=== PATIENT | male | born 1995 | race Asian ===

== ENCOUNTER 2022-02-12 16:12 | Emergency (ER) | payer BC, SELFPAY ==
--- NOTE | ~2022-02-12 | CT_ITS ---
EXAMINATION: CT brain wo con DATE: 02/12/2022 16:52 INDICATION: headache . TECHNIQUE: Computed tomography (CT) of the head was performed without intravenous contrast. The mA wa s adjusted according to patient size. Iterative reconstruction technique was employed. The dose-lengt h product was 605.33 mGy-cm. COMPARISON: None FINDINGS: No acute intracranial hemorrhage or extra-axial fluid collection. No hydrocephalus, mass, or herniation. No acute ischemic infarct. Unremarkable dural venous sinus attenuation. No acute osseous abnormality. The aerated spaces are clear. IMPRESSION: No acute intracranial process. Reviewed, dictated and finalized at location [facility]. [facility]
[2022-02-12 16:24] VITALS: BP 142/100; PULSE 105; RESP 18; TEMP 37.1; O2SAT 97
[2022-02-12 16:42] LABS: Basophils Absolute Auto 0.1 K/mm3 (0.0-0.1); Basophils Percent Auto 0.4 % (0.2-1.2); Hemoglobin 15.9 g/dL (14.0-18.0); Immature Granulocyte Absolute 0.04 K/mm3 (0.00-0.031); Immature Granulocyte Percent A 0.3 % (0-0.5); Lymphocytes Absolute Auto 1.45 K/mm3 (0.9-3.2); Lymphocytes Percent Auto 12.3 % (18.3-44.2); Mean Corpuscular HGB Conc 34.6 g/dl (32-36); Mean Corpuscular Hemoglobin 31.1 pg (26-34); Mean Corpuscular Volume 89.8 fl (80-100); Monocytes Absolute Auto 0.5 K/mm3 (0.1-0.6); Neutrophils Absolute Auto 9.8 K/mm3 (1.3-6.7); Platelet Count Result 266 k/mm3 (150-375); Red Blood Count 5.12 M/mm3 (4.6-6.20); Red Cell Distribution Width 11.9 % (11.5-14.5); White Blood Count 11.8 K/mm3 (4.5-10.0)
[2022-02-12 16:52] LABS: Alanine Aminotransferase 60 U/L (6-50); Albumin Level 5.4 g/dL (3.5-5.1); Alkaline Phosphatase 113 U/L (38-126); Anion Gap 15 mmol/L (8-16); Aspartate Amino Transferase 38 U/L (17-59); Bilirubin,Total 0.9 mg/dL (0.2-1.3); Blood Urea Nitrogen 9 mg/dL (9-20); Calcium 9.9 mg/dL (8.4-10.2); Carbon Dioxide 24 mmol/L (22-30); Chloride 105 mmol/L (98-107); Estimated Glomerular Filt Rate > 60; Glucose 116 mg/dL (65-110); Sodium 144 mmol/L (137-145)
--- NOTE | 2022-02-12 17:00 | ED.GENADULT ---
HPI - General Adult General Chief complaint: Headache Stated complaint: dizzy/vomiting/murray Time Seen by Provider: 02/12/22 16:17 History of Present Illness HPI narrative: 26-year-old male presented to the emergency department for evaluation of intermittent headache with associated nausea and vomiting. Patient states over the last 3 weeks he has had intermittent headache. Related Data Allergies Allergy/AdvReac Type Severity Reaction Status Date / Time No Known Allergies Allergy Verified 02/12/22 17:29 Review of Systems Review of Systems: CONSTITUTIONAL: Denies fever, chills, or sweats. EYES: Denies visual changes, redness, or discharge. ENT: Denies rhinorrhea, congestion, sore throat, or otalgia. CARDIOVASCULAR: Denies chest pain, palpitations, or edema. RESPIRATORY: Denies cough or dyspnea. GASTROINTESTINAL: Denies abdominal pain, nausea, vomiting, or diarrhea. GENITOURINARY: Denies dysuria or hematuria. SKIN: Denies rash or itching. MUSCULOSKELETAL: Denies back pain, joint pain, or myalgia. NEUROLOGIC: See HPI Exam Narrative: APPEARANCE: Well appearing, no pain, no distress, well-nourished. HEAD: normocephalic, atraumatic. EYES: PERRLA/EOMI, conjunctivae clear. NOSE: Normal no drainage EARS:TMS clear with good light reflex. THROAT: Pharynx clear, no exudate. NECK: Supple. No adenopathy, no masses. RESPIRATORY: Airway patent, respirations nonlabored. Clear to auscultation bilaterally, no rales, rhonchi, wheezing. CARDIOVASCULAR: Regular rate and rhythm without murmurs rubs or gallops. ABDOMINAL: Soft, nontender, nondistended, normal bowel sounds MUSCULOSKELETAL: Moves all extremities. Strength/ROM intact, No edema, No calf tenderness. NEURO: Alert. Cranial nerves II through XII intact. Good gait. Good coordination SKIN: Warm, dry. Normal Color Course Course Emergency Course: Patient's head CT was negative for acute finding. Patient reports he does feel improved. Patient was afebrile. Patient does have a mild leukocytosis of 11.8. Patient's CMP is within normal limits. Patient was negative for flu and for COVID. Patient was updated the results of his work-up. He is encouraged of close follow-up with primary care physician. Vital Signs Vital signs: Vital Signs Temperature 98.8 F 02/12/22 16:24 Pulse Rate 105 H 02/12/22 16:24 Respiratory Rate 18 02/12/22 16:24 Blood Pressure 142/100 H 02/12/22 16:24 Pulse Oximetry 97 02/12/22 16:24 Temperature 97.9 F 02/12/22 19:09 Pulse Rate 87 02/12/22 19:09 Respiratory Rate 18 02/12/22 19:09 Blood Pressure 121/71 02/12/22 19:09 Pulse Oximetry 99 02/12/22 19:09 Medical Decision Making Vital Signs Vital Signs: Vital Signs Temperature 98.8 F 02/12/22 16:24 Pulse Rate 105 H 02/12/22 16:24 Respiratory Rate 18 02/12/22 16:24 Blood Pressure 142/100 H 02/12/22 16:24 Pulse Oximetry 97 02/12/22 16:24 Temperature 97.9 F 02/12/22 19:09 Pulse Rate 87 02/12/22 19:09 Respiratory Rate 18 02/12/22 19:09 Blood Pressure 121/71 02/12/22 19:09 Pulse Oximetry 99 02/12/22 19:09 Lab Data Result diagrams: 02/12/22 16:36 02/12/22 16:36 Labs: Lab Results 02/12/22 02/12/22 02/12/22 Range/Units 16:34 16:36 16:36 WBC 11.8 H (4.5-10.0) K/mm3 RBC 5.12 (4.6-6.20) M/mm3 Hgb 15.9 (14.0-18.0) g/dL Hct 46.0 (42.0-52.0) % MCV 89.8 (80-100) fl MCH 31.1 (26-34) pg MCHC 34.6 (32-36) g/dl RDW 11.9 (11.5-14.5) % Plt Count 266 (150-375) k/mm3 MPV 9.0 (7.4-10.4) fl Immature Gran % (Auto) 0.3 (0-0.5) % Neut % (Auto) 83.0 H (45.5-73.1) % Lymph % (Auto) 12.3 L (18.3-44.2) % [place] % (Auto) 4.0 (2.6-8.5) % Eos % (Auto) 0.0 (0-4.4) % Baso % (Auto) 0.4 (0.2-1.2) % Lymph # (Auto) 1.45 (0.9-3.2) K/mm3 [place] # (Auto) 0.5 (0.1-0.6) K/mm3 Eos # (Auto) 0.0 (0-0.3) K/mm3 Baso # (Auto) 0.1 (0.0-0.1) K/mm3 Abs
[2022-02-12 17:15] LABS: Influenza A QL RT-PCR Negative (Negative); Influenza B QL RT-PCR Negative (Negative); SARS-CoV-2 RNA PCR Negative
[2022-02-12] MEDS: SODIUM CHLORIDE 0.9% IV 1,000 ML 999 ML IV CONT (17:32)
[2022-02-12] MEDS: PROCHLORPERAZINE EDISYLATE 10 MG/2 ML VIAL IV PUSH (17:32)
[2022-02-12] MEDS: diphenhydrAMINE HCl INJ 50 MG/ML VIAL 25 MG IV PUSH (17:32)
[2022-02-12] MEDS: KETOROLAC 15 MG/ML VIAL (*BKC) IV PUSH (17:48)
[2022-02-12 19:09] VITALS: BP 121/71; PULSE 87; RESP 18; TEMP 36.6; O2SAT 99
--- NOTE | 2022-02-12 19:24 | PC.NURSE ---
Report received from RANDY Shaw. Assumed care of patient at this time.
== END 2022-02-12 20:13 | disposition home or self-care (01) ==
PROVIDERS: Emergency Provider Emergency Medicine
DX: R51.9 Headache, unspecified (principal); Z20.822 Contact with and (suspected) exposure to COVID-19
CPT/HCPCS: 36415; 70450; 80053; 85025; 87636; 96374; 96375; 99284; J0780; J1200; J1885; J7030

== ENCOUNTER 2022-07-19 16:33 | Emergency (ER) | payer BC, SELFPAY ==
[2022-07-19 16:45] VITALS: BP 128/79; PULSE 107; RESP 16; TEMP 37.2; O2SAT 100
--- NOTE | 2022-07-19 18:09 | ED.GENADULT ---
HPI - General Adult General Chief complaint: Skin/Abscess/Foreign Body Stated complaint: cyst on back Time Seen by Provider: 07/19/22 17:26 History of Present Illness HPI narrative: 27 yo male presents for eval of painful mass at the top of his gluteal cleft. He thinks it may be related to his recent laser hair removal. No fever He was seen at the urgent care yesterday and started on metronidazole which she is taking as directed but the cyst continues to worsen Related Data Allergies Allergy/AdvReac Type Severity Reaction Status Date / Time No Known Allergies Allergy Verified 02/12/22 17:29 Review of Systems Review of Systems: CONSTITUTIONAL: Denies fever, chills, or sweats. EYES: Denies visual changes, redness, or discharge. ENT: Denies rhinorrhea, congestion, sore throat, or otalgia. CARDIOVASCULAR: Denies chest pain, palpitations, or edema. RESPIRATORY: Denies cough or dyspnea. GASTROINTESTINAL: Denies abdominal pain, nausea, vomiting, or diarrhea. GENITOURINARY: Denies dysuria or hematuria. SKIN: Denies rash or itching. MUSCULOSKELETAL: Denies back pain, joint pain, or myalgia. NEUROLOGIC: Denies headache, numbness, or weakness. PSYCHIATRIC: Denies anxiety or depression. Exam Narrative: GENERAL: Well-appearing, well-nourished, and in no acute distress. HEAD: Normocephalic, atraumatic. EYES: PERRLA and EOMI. ENT: Nares clear, no rhinorrhea or epistaxis. Mucous membranes moist. NECK: Supple. CHEST: Clear to auscultation. No respiratory distress. HEART: Regular rate and rhythm. No murmur heard. Normal peripheral pulses. ABDOMEN: Soft, nontender, nondistended, normal active bowel sounds. EXTREMITIES: Normal range of motion. No edema. SKIN: Warm, dry, no rash. Fluctuant mass that is approximately 2 cm in diameter noted at the superior aspect of the gluteal cleft. There is surrounding induration and erythema NEURO: No focal deficits. Alert and oriented x3. PSYCH: Normal mood and affect. Course Vital Signs Vital signs: Vital Signs Temperature 98.9 F 07/19/22 16:45 Pulse Rate 107 H 07/19/22 16:45 Respiratory Rate 16 07/19/22 16:45 Blood Pressure 128/79 07/19/22 16:45 Pulse Oximetry 100 07/19/22 16:45 Temperature 98.9 F 07/19/22 16:45 Pulse Rate 107 H 07/19/22 16:45 Respiratory Rate 16 07/19/22 16:45 Blood Pressure 128/79 07/19/22 16:45 Pulse Oximetry 100 07/19/22 16:45 Procedures Abscess I/D other: Abcess I&D Additional Comments: Patient presents with apparent pilonidal abscess. Wound was scrubbed with chlorhexidine. Using [id number] ultrasound cellulitis and fluid pocket was identified. Local anesthetic with 5 cc of 1% lidocaine with epinephrine. Using an 18-gauge needle pocket of purulent liquid was identified with an immediate removal of 10 cc of purulent drainage. Using an 11 blade I followed the direction of the needle into the pocket of abscess and continued to drain bloody and purulent liquid. Hemostats used to break up loculations and 4 cm of quarter inch iodoform gauze packing was placed. Wound was left open to drain. Patient is afebrile. No complications. He tolerated it well. Medical Decision Making Vital Signs Vital Signs: Vital Signs Temperature 98.9 F 07/19/22 16:45 Pulse Rate 107 H 07/19/22 16:45 Respiratory Rate 16 07/19/22 16:45 Blood Pressure 128/79 07/19/22 16:45 Pulse Oximetry 100 07/19/22 16:45 Temperature 98.9 F 07/19/22 16:45 Pulse Rate 107 H 07/19/22 16:45 Respiratory Rate 16 07/19/22 16:45 Blood Pressure 128/79 07/19/22 16:45 Pulse Oximetry 100 07/19/22 16:45 Discharge Plan Discharge Clinical Impression: Cyst, pilonidal, with abscess, Cellulitis Patient Disposition: Home, Self-Care Condition: Stable Instructions: Antibiotic Form, Abscess (ED) Additional Instructions: Please keep wound clean and dry. You may remove the packing in 2 to 3 days. Take all medications as direc
--- NOTE | 2022-07-19 18:24 | PC.NURSE ---
After getting cyst lanced by provider patient began feeling weak and diaphoretic. Patient was able to lower himself to the floor before getting help. When this RN came into the room patient was sitting on the floor. Patient denies LOC and states he did not fall and he stood up and felt dizzy and was able to sit himself down before falling. Patient vital signs are stable and provider made aware.
[2022-07-19 19:37] VITALS: BP 125/69; PULSE 68; RESP 17; O2SAT 100
== END 2022-07-19 19:42 | disposition home or self-care (01) ==
LOC: ANHED 18:43
PROVIDERS: Emergency Provider Emergency Medicine
DX: L05.01 Pilonidal cyst with abscess (principal); L03.317 Cellulitis of buttock
CPT/HCPCS: 10061; 99282